=== PATIENT | female | born 1995 ===

== ENCOUNTER 2023-07-05 14:08 | Outpatient (CLI) | payer OTHER, SELFPAY | END 2023-07-05 14:09 | disposition home or self-care (01) | LOC: AMB 07-21 00:07 | PROVIDERS: Visit Provider Emergency Medicine Emergency Medical Services | DX: S59.911A Unspecified injury of right forearm, initial encounter (principal); S59.912A Unspecified injury of left forearm, initial encounter; V43.53XA Car driver injured in collision with pick-up truck in traffic accident, initial encounter; Y92.414 Local residential or business street as the place of occurrence of the external cause | CPT/HCPCS: A0998 ==